=== PATIENT | female | born 1955 | race African-American/Black ===

== ENCOUNTER 2022-07-26 15:41 | Emergency (ER) | payer OTHER, SELFPAY ==
[2022-07-26 16:21] VITALS: BP 162/80; PULSE 101; RESP 16; TEMP 36.8; O2SAT 100
--- NOTE | 2022-07-26 16:30 | ED.BACK ---
HPI - Back Pain/Injury General Chief Complaint: Headache Stated Complaint: Pain Back of Head/Neck Time Seen by Provider: 07/26/22 16:30 Source: patient, RN notes reviewed and old records reviewed Mode of arrival: ambulatory Limitations: no limitations History of Present Illness HPI Narrative: 67-year-old female presents to the [facility] with complaints of back of head and left lateral neck pain. Was evaluated by primary care provider on the prescribed Celebrex and Flexeril. Patient states that she is not doing any better and wanted a CT scan. Explained to patient that we do not do CT scans that we are a minor medical clinic. Patient does report that she had x-rays done on Wednesday and does not know any results yet. Seen primary and was prescribed Flexeril as well as Celebrex Patient denies any blurry vision or change in vision. Pain with turning of head. Denies any numbness and tingling in extremities. Denies fevers Tenderness lateral left neck. Is currently wearing a towel with a home remedy States the headache and the neck pain started right after she had x-rays done of her shoulder Denies any trauma Onset (ago): day(s) (2) Related Data Home Medications Medication Instructions Recorded Confirmed blood sugar diagnostic (Contour 07/26/22 07/26/22 Next Test Strips) celecoxib 100 mg capsule mg 07/26/22 cyclobenzaprine 10 mg tablet mg 07/26/22 dulaglutide 0.75 mg/0.5 mL mg subcut 07/26/22 subcutaneous pen injector (Trulicity) felodipine 5 mg tablet,extended mg PO 07/26/22 release 24 hr ferrous gluconate 324 mg (38 mg mg 07/26/22 iron) tablet glimepiride 4 mg tablet mg 07/26/22 montelukast 10 mg tablet mg 07/26/22 omeprazole 20 mg capsule,delayed mg 07/26/22 release pioglitazone 15 mg tablet mg 07/26/22 rosuvastatin 5 mg tablet mg 07/26/22 Allergies Allergy/AdvReac Type Severity Reaction Status Date / Time iodine Allergy Unknown Other Verified 07/26/22 16:34 Review of Systems Review of Systems: All systems reviewed & are unremarkable except as noted in HPI and below Constitutional: Constitutional: Reports no additional constitutional complaints Eyes: Eyes: Reports no additional eye complaints ENT: Reports system reviewed and no additional complaints, except as documented Cardiovascular: Cardiovascular: Reports no additional cardiovascular complaints, Denies chest pain and Denies dyspnea Respiratory: Respiratory: Reports no additional respiratory complaints, Denies chest congestion, Denies cough and Denies dyspnea Gastrointestinal: Gastrointestinal: Reports no additional gastrointestinal complaints, Denies abdominal pain, Denies nausea and Denies vomiting Musculoskeletal: Musculoskeletal: Reports as per HPI Integumentary/Breasts: Skin/Breast: Reports system reviewed and no additional complaints, except as docu Neurologic: Reports system reviewed and no additional complaints, except as documented Psychiatric: Psychiatric: Reports no additional psychiatric complaints Allergic/Immunologic: Allergic/Immunologic: Reports no additional allergic/immunologic complaints PMFSH Comments At the time of my signature, I reviewed and agree with the nursing past medical, surgical, social, and family history. There is no relevant family history pertinent to the patient complaint. Exam Const: General: cooperative, healthy appearing, comfortable, no acute distress, well developed, alert and well nourished Nutritional Appearance: well nourished and obese Orientation/consciousness: patient oriented x3 Limitations: no limitations HENMT: Head: normal to inspection Ears: hearing grossly normal bilaterally and external ears normal Face/Nose/Sinus: Normal external nose present, Normal nares present, Normal nasal mucous membranes and turbinates present and normal facial exam Face and sinus: normal facial exam Mouth: Yes Normal oral and palatal mucosa present, Yes lip normal and Yes moist muco
== END 2022-07-26 16:43 | disposition home or self-care (01) ==
PROVIDERS: Emergency Provider Nurse Practitioner; PCP Family Medicine
DX: S16.1XXA Strain of muscle, fascia and tendon at neck level, initial encounter (principal); X58.XXXA Exposure to other specified factors, initial encounter
CPT/HCPCS: 99212; G0463